=== PATIENT | female | born 1990 | race Caucasian/White ===

== ENCOUNTER 2017-01-04 08:35 | Emergency (ER) | payer MEDICAID ==
[~2017-01-04] VITALS: Ht 157.5 cm; Wt 70.0 kg
[~2017-01-04 08:35] MED LIST: FERR27TA PO; NAPR-688 PO
[2017-01-04 08:45] VITALS: Ht 157.5 cm; Wt 70.0 kg
[2017-01-04] MEDS ORDERED: ALBUTEROL 0.083% (NEB) 2.5 MG/3 ML AMP HHN STA ×2 (09:16→10:08)
[2017-01-04] MEDS ORDERED: IPRATROPIUM (NEB) 0.5 MG/2.5 ML AMP HHN ONE ×2 (09:30→10:30)
--- NOTE | 2017-01-04 09:30 | ERA ---
ER Documentation Chief Complaint Date/Time DATE: 01/04/17 TIME: 09:27 Chief Complaint cough,nasal congestion,sob since last night HPI 26-year-old female with a chief complaints of coughing and difficulty breathing 1 night. Patient has not had symptoms like this in the past. Patient denies asthma, diabetes, or other medical conditions. Has not taken any medications to relieve the symptoms. Denies recent illness, chest pain, shortness of breath with exertion, headache or fever. Patient has no other complaints and describes no other associated manifestations. Nursing notes have been reviewed and are consistent with history given. ROS All systems reviewed and are negative except as per history of present illness. Medications Home Meds Active Scripts Prednisone* (Prednisone*) 20 Mg Tab, 40 MG PO DAILY for 4 Days, TAB Prov:ESSENCE TEIXEIRA PA-C 01/04/17 Albuterol Sulfate* (Proair HFA*) 8.5 Gm Hfa.aer.ad, 2 PUFF INH Q4, #1 INHALER Prov:ESSENCE TEIXEIRA PA-C 01/04/17 Naproxen* (Naproxen*) 500 Mg Tablet, 500 MG PO BID, #20 TAB Prov:MARIAELENA MCCAULEY DO 08/08/15 Reported Medications Ferrous Sulfate (Iron) 1 Tab Tablet, 1 TAB PO DAILY 02/21/11 Allergies Allergies: Coded Allergies: No Known Allergy (Verified , 08/08/15) PMhx/Soc History of Surgery: No Anesthesia Reaction: No Hx Neurological Disorder: No Hx Respiratory Disorders: No Hx Cardiac Disorders: No Hx Psychiatric Problems: No Hx Miscellaneous Medical Probl: No Hx Alcohol Use: No Hx Substance Use: No Hx Tobacco Use: No Physical Exam Vitals Vital Signs Date Time Temp Pulse Resp B/P Pulse Ox O2 Delivery O2 Flow Rate FiO2 01/04/17 10:13 89 17 95 21 01/04/17 08:45 98.1 99 18 128/68 99 Physical Exam Const: Well-appearing, no acute distress Head: Atraumatic Eyes: Normal Conjunctiva ENT: Normal External Ears, Nose and Mouth. Neck: Full range of motion..~ No meningismus. Resp: Moderate wheezing in all lung lester bilaterally. No tripoding, dyspnea , able to tolerate oral secretions. Cardio: Regular rate and rhythm, no murmurs Abd: Soft, non tender, non distended. Normal bowel sounds Skin: No petechiae or rashes Back: No midline or flank tenderness Ext: No cyanosis, or edema Neur: Awake and alert Psych: Normal Mood and Affect Results 24 hrs Current Medications Medications (Trade) Dose Ordered Sig/Kendy Route PRN Reason Start Time Stop Time Status Last Admin Dose Admin Albuterol (Proventil 0.083% (Neb)) 5 mg ONCE STAT HHN 01/04/17 09:16 01/04/17 09:19 DC 01/04/17 09:27 Ipratropium [place] (Atrovent 0.02% (Neb)) 0.5 mg ONCE ONCE HHN 01/04/17 09:30 01/04/17 10:02 DC 01/04/17 09:27 Albuterol (Proventil 0.083% (Neb)) 5 mg ONCE STAT HHN 01/04/17 10:08 01/04/17 10:10 DC 01/04/17 10:11 Ipratropium [place] (Atrovent 0.02% (Neb)) 0.5 mg ONCE ONCE HHN 01/04/17 10:30 01/04/17 10:31 DC 01/04/17 10:11 Prednisone (Prednisone) 50 mg ONCE ONCE PO 01/04/17 10:30 01/04/17 10:31 DC 01/04/17 10:45 Procedures/MDM Patient was evaluated and worked up for shortness of breath as described in the history and physical exam. Patient has no history of asthma. The differential diagnosis is vast and includes, but is not limited to the following: asthma, pneumonia, bronchitis, bronchiolitis, epiglottis, acute urticaria, foreign body , etc. RT was consulted, and oxygen, 5mg albuterol and Ipratropium one hour continuous nebulization was ordered. After first treatment patient continued to have wheezing, thus another treatment was given along with 50 mg of prednisone p.o. After reevaluation, the patients symptoms had improved and the lungs were clear to auscultation with no crackles, wheezing or any extra respiratory effort. X-ray was ordered of the chest, read by the radiologist, given the following impression: Unremarkable The current most likely diagnosis is asthma exacerbation - first episode. At this time, I have little suspicion for pulmonary embolism, pneumonia, CHF, acute cardiac disorders, foreign body obstruction, allergic reaction, angioedema , or other obstructive disorders. I have presented the case to my attending who agrees with the assessment and plan. The patients vitals are stable. Following treatment, I no longer have a suspicion for endangerment of the airway. Their current status is appropriate for discharge. Patient will be discharged at this time with discharge instructions and return precautions. Prescriptions for continued out-patient therapy will include the following: Albuterol MDI as needed, prednisone 40 mg p.o. 4 days. After thorough patient education, they have verbally responded that they understand the treatment plan and proper use of medications. Departure Diagnosis: Primary Impression: Asthma attack Additional Impression: Asthma Qualified Code: J45.31 - Mild persistent asthma with acute exacerbation Condition: Stable Additional Instructions: Follow up with your PCP within the next 1-3 days for a more thorough evaluation and a possible referral to a specialist. Return the the emergency department immediately if symptoms worsen or change. If you have any questions regarding medications, ask your pharmacist or us before you leave. If any adverse reactions occur while taking your medications, discontinue the treatment and return to the emergency department immediately. Take your medications as directed, and complete the entire course of treatment. ESSENCE TEIXEIRA PA-C Jan 04, 2017 09:30
--- NOTE | 2017-01-04 10:29 | RADRPT ---
PROCEDURE: Chest Radiograph. CLINICAL INDICATION: Asthma exacerbation. TECHNIQUE: Single frontal chest radiograph. COMPARISON: None available FINDINGS: The cardiomediastinal silhouette is within normal limits. No infiltrate or effusion is seen. Th e bones are intact. IMPRESSION: 1. Unremarkable chest radiograph. RPTAT: KK .James Dodge MD, MD Date Time Electronically viewed and signed by .James Dodge MD, on 01/04/2017 10:28 .B/
[2017-01-04] MEDS ORDERED: predniSONE 50 MG TAB PO ONE (10:30)
[2017-01-04] MEDS ORDERED: ALBU8.5H3 INH (10:35)
[2017-01-04] MEDS ORDERED: PRED20TA PO (11:04)
[2017-01-04 11:22] VITALS: BP 122/67; PULSE 89; RESP 18; TEMP 98
== END 2017-01-04 11:23 | disposition home or self-care (01) ==
LOC: FTE 08:35
DX: J45.31 Mild persistent asthma with (acute) exacerbation (principal)
CPT/HCPCS: 71010; 94640; 94664; J7512; Z7502; Z7610

== ENCOUNTER 2018-08-22 10:27 | Emergency (ER) | payer BC, MEDICAID ==
[~2018-08-22] VITALS: Ht 157.5 cm; Wt 54.7 kg
[~2018-08-22 10:27] MED LIST changes: +ALBU8.5H8 INH; +PRED20TA PO
[2018-08-22 10:42] VITALS: BP 144/70; PULSE 98; RESP 16; Ht 157.5 cm; Wt 54.7 kg
--- NOTE | 2018-08-23 15:30 | ERD ---
ER Documentation Chief Complaint Chief Complaint UNEXPLAINED WEIGHT LOSS, FREQUENT BM W/ GREENISH-STOOL X2 WEEKS HPI 28-year-old female patient with no significant past medical history presents to the ED complaining of having greenish loose stools that apparently started about 2 weeks ago. Reports that she has not seen a primary care physician. States that she only has abdominal pain when she presses on her abdomen. Reports that whenever she is eating she has loose green stools. Denies any decreased appetite. Denies any bloody stools. States that her last menstruation sometime in July 2018. States that she feels like she lost 10 pounds over the course of the 2 weeks. Denies any fever, chills, nausea, vomiting, diarrhea, neck stiffness. ROS All systems reviewed and are negative except as per history of present illness. Medications Home Meds Active Scripts Prednisone* (Prednisone*) 20 Mg Tab, 40 MG PO DAILY for 4 Days, TAB Prov:ESSENCE TEIXEIRA PA-C 01/04/17 Albuterol Sulfate* (Proair HFA*) 8.5 Gm Hfa.aer.ad, 2 PUFF INH Q4, #1 INHALER Prov:ESSENCE TEIXEIRA PA-C 01/04/17 Naproxen* (Naproxen*) 500 Mg Tablet, 500 MG PO BID, #20 TAB Prov:MARIAELENA MCCAULEY DO 08/08/15 Reported Medications Ferrous Sulfate (Iron) 1 Tab Tablet, 1 TAB PO DAILY 02/21/11 Allergies Allergies: Coded Allergies: No Known Allergy (Verified , 08/08/15) PMhx/Soc Medical and Surgical Hx: pt denies Medical Hx, pt denies Surgical Hx History of Surgery: No Anesthesia Reaction: No Hx Neurological Disorder: No Hx Respiratory Disorders: No Hx Cardiac Disorders: No Hx Psychiatric Problems: No Hx Miscellaneous Medical Probl: No Hx Alcohol Use: No Hx Substance Use: No Hx Tobacco Use: No Smoking Status: Never smoker FmHx Family History: No diabetes, No coronary disease Physical Exam Vitals Vital Signs Date Temp Pulse Resp B/P (MAP) Pulse Ox O2 O2 Flow FiO2 Time Delivery Rate 08/22/18 98.8 98 16 144/70 98 10:42 (94) Physical Exam Const: Iaq-wpw-mryqvroyq, well-nourished. In no acute distress. Head: Atraumatic, normocephalic Eyes: Normal Conjunctiva without injection. No purulent discharge. ENT: Normal external ear, nose. Moist oropharynx without tonsillar exudates. Non-erythematous pharynx. Uvula midline. No drooling. No trismus. Neck: No cervical midline tenderness. Full range of motion. No meningismus. No cervical lymphadenopathy. No JVD. Resp: Clear to auscultation bilaterally. No wheezing, rhonchi, rales, or crackles. No accessory muscle use. No retractions. Cardio: Regular rate and rhythm. No murmurs, rubs or gallops. Abd: Soft, slight upper left quadrant tenderness, non distended. Normal bowel sounds. No palpable masses. No rebound tenderness. No guarding. Negative McBurney's point. Negative psoas sign. Negative obturator sign. Skin: No petechiae or rashes Back: No midline tenderness. No CVA tenderness. Ext: No cyanosis, or edema. Neur: Awake and alert. Normal gait. Normal coordination. Psych: Normal Mood and Affect Result Diagram: 08/22/18 1256 08/22/18 1256 Results 24 hrs Laboratory Tests Test 08/22/18 12:40 08/22/18 12:56 Urine Color YELLOW Urine Clarity SLIGHTLY CLOUDY Urine pH 8.0 Urine Specific [place] 1.024 Urine Ketones NEGATIVE mg/dL Urine Nitrite NEGATIVE mg/dL Urine Bilirubin NEGATIVE mg/dL Urine Urobilinogen NEGATIVE mg/dL Urine Leukocyte Esterase NEGATIVE Tere/ul Urine Microscopic RBC 1 /HPF Urine Microscopic WBC 1 /HPF Urine Squamous Epithelial Cells MODERATE /HPF Urine Bacteria FEW /HPF Urine Mucus FEW /HPF Urine Hemoglobin NEGATIVE mg/dL Urine Glucose NEGATIVE mg/dL Urine Total Protein NEGATIVE mg/dl POC Beta HCG, Qualitative NEGATIVE White Blood Count 6.4 10^3/ul Red Blood Count 4.66 10^6/ul Hemoglobin 12.6 g/dl Hematocrit 36.3 % Mean Corpuscular Volume 77.9 fl Mean Corpuscular Hemoglobin 27.0 pg Mean Corpuscular Hemoglobin Concent 34.7 g/dl Red Cell Distribution Width 12.8 % Platelet Count 263 10^3/UL Mean Platelet Volume 10.1 fl Immature Granulocytes % 0.200 % Neutrophils % 49.6 % Lymphocytes % 34.6 % Monocytes % 9.9 % Eosinophils % 5.2 % Basophils % 0.5 % Nucleated Red Blood Cells % 0.0 /100WBC Immature Granulocytes # 0.010 10^3/ul Neutrophils # 3.2 10^3/ul Lymphocytes # 2.2 10^3/ul Monocytes # 0.6 10^3/ul Eosinophils # 0.3 10^3/ul Basophils # 0.0 10^3/ul Nucleated Red Blood Cells # 0.0 10^3/ul Sodium Level 140 mmol/L Potassium Level 4.4 mmol/L Chloride Level 106 mmol/L Carbon Dioxide Level 26 mmol/L Anion Gap 8 Blood Urea Nitrogen 12 mg/dl Creatinine 0.47 mg/dl Est Glomerular Filtrat Rate mL/min > 60 mL/min Glucose Level 99 mg/dl Calcium Level 9.8 mg/dl Total Bilirubin 0.3 mg/dl Direct Bilirubin 0.00 mg/dl Indirect Bilirubin 0.3 mg/dl Aspartate Amino Transf (AST/SGOT) 42 IU/L Alanine Aminotransferase (ALT/SGPT) 50 IU/L Alkaline Phosphatase 80 IU/L Total Protein 7.4 g/dl Albumin 4.3 g/dl Globulin 3.10 g/dl Albumin/Globulin Ratio 1.38 Lipase 111 U/L Procedures/MDM 28-year-old female patient with no significant past medical history presents to ED complaining of loose green stools. Patient is afebrile and nontoxic- appearing. CBC: No leukocytosis. No e/o of systemic infection. No e/o anemia. CMP: No e/o severe acidosis, alkalosis, renal failure, diabetic ketoacidosis, liver disease Lipase within normal limits. Urine: No leukocyte esterase, no nitrites, no hematuria. Urine : Negative Differentials include viral etiology. Low suspicion for ectopic , ova mundo torsion, gastritis, GERD, peptic ulcer disease, cholecystitis, choledocholithiasis, cholangitis, pancreatitis, appendicitis, bowel obstruction, ileus, volvulus, nephrolithiasis, pyelonephritis, hepatitis, perforated viscus, diverticulitis, strangulated/incarcerated hernia, DKA, acute abdomen, mesenteric ischemia or other emergent conditions. Diagnosis: Loose Stools Follow up with primary care physician in 1-2 days. Instructed patient to return to the ED sooner for any worsening symptoms. Patient's questions were answered. Patient is hemodynamically stable. Patient understood and agreed with discharge plan. Patient discharged stable. Disclaimer: Inadvertent spelling and grammatical errors are likely due to EHR/dictation software use and do not reflect on the overall quality of patient care. Also, please note that the electronic time recorded on this note does not necessarily reflect the actual time of the patient encounter. Departure Diagnosis: Primary Impression: Loose stools Condition: Stable Patient Instructions: Abdominal Pain, Unknown Cause, (Female), Diarrhea, Viral (Child) (Adult) Referrals: [facility] YOU HAVE RECEIVED A MEDICAL SCREENING EXAM AND THE RESULTS INDICATE THAT YOU DO NOT HAVE A CONDITION THAT REQUIRES URGENT TREATMENT IN THE EMERGENCY DEPARTMENT. FURTHER EVALUATION AND TREATMENT OF YOUR CONDITION CAN WAIT UNTIL YOU ARE SEEN IN YOUR DOCTORS OFFICE WITHIN THE NEXT 1-2 DAYS. IT IS YOUR RESPONSIBILITY TO MAKE AN APPOINTMENT FOR FOLOW-UP CARE. IF YOU HAVE A PRIMARY DOCTOR --you should call your primary doctor and schedule an appointment IF YOU DO NOT HAVE A PRIMARY DOCTOR YOU CAN CALL OUR PHYSICIAN REFERRAL HOTLINE AT IF YOU CAN NOT AFFORD TO SEE A PHYSICIAN YOU CAN CHOSE FROM THE FOLLOWING [facility] [address] [facility] [address] [facility] [address] [facility] [address] [facility] [address] [facility] [facility] [facility] [address] [facility] [address] [facility]. [facility]. [address] [facility]. [facility] YOU HAVE RECEIVED A MEDICAL SCREENING EXAM AND THE RESULTS INDICATE THAT YOU DO NOT HAVE A CONDITION THAT REQUIRES URGENT TREATMENT IN THE EMERGENCY DEPARTMENT. FURTHER EVALUATION AND TREATMENT OF YOUR CONDITION CAN WAIT UNTIL YOU ARE SEEN IN YOUR DOCTORS OFFICE WITHIN THE NEXT 1-2 DAYS. IT IS YOUR RESPONSIBILITY TO MAKE AN APPOINTMENT FOR FOLOW-UP CARE. IF YOU HAVE A PRIMARY DOCTOR --you should call your primary doctor and schedule and appointment IF YOU DO NOT HAVE A PRIMARY DOCTOR YOU CAN CALL OUR PHYSICIAN REFERRAL HOTLINE AT . IF YOU CAN NOT AFFORD TO SEE A PHYSICIAN YOU CAN CHOSE FROM THE FOLLOWING [place]: [facility] [address] [place] [address] [facility] [address] [place] [address] [facility] [address] [place] [address] [facility] URGENT CARE/SPECIALTIES Additional Instructions: Call your primary care doctor TOMORROW for an appointment during the next 2-3 days for a referral to see a gastroenteorlogist.See the doctor sooner or return here if your condition worsens before your appointment time. CHARLEE AHUMADA PA-C Aug 23, 2018 15:30
== END 2018-08-22 14:11 | disposition home or self-care (01) ==
LOC: FTE 10:27
DX: R19.7 Diarrhea, unspecified (principal)
CPT/HCPCS: 36415; 80053; 81001; 81003; 81025; 83690; 85025; 99283